=== PATIENT | female | born 1985 | race Caucasian/White ===

== ENCOUNTER 2022-06-27 12:45 | Emergency (ER) | payer BC ==
[2022-06-27 13:26] LABS: ANION GAP 11.6 mEq/L (7-13); CHLORIDE,CL 104 mmol/L (98-107); ESTIMATED GFR 91 mL/min (>=60); SODIUM,NA 142 mmol/L (136-145)
[2022-06-27] MEDS: Sodium Chloride 0.9% 10 ML Syringe FLUSH PRN ×2 (13:43→15:24)
[2022-06-27] MEDS ORDERED: Sodium Chloride 0.9% 1,000 ML IV ONE (13:46)
[2022-06-27] MEDS ORDERED: Iopamidol 755 Mg/ML 100 ML Bottle IVPUSH ONE (14:00)
[2022-06-27] MEDS ORDERED: GI Cocktail Oral Solution 30 ML PO ONE (14:30)
[2022-06-27] MEDS ORDERED: Famotidine 20 MG/2 ML SDV IVPUSH ONE (14:59)
== END 2022-06-27 16:20 | disposition home or self-care (01) ==
LOC: DL.ED 12:45 → MERGE 12:45 → DL.ED 16:20
DX: K20.90 Esophagitis, unspecified without bleeding (principal); K22.4 Dyskinesia of esophagus; Z88.8 Allergy status to other drugs, medicaments and biological substances; Z91.09 Other allergy status, other than to drugs and biological substances
CPT/HCPCS: 36415; 71045; 71275; 80053; 82150; 83690; 84484; 84703; 85025; 85379; 85610; 85730; 93005; 96361; 96374; 99285; A9270; J3490; J7030; Q9967; 93010

== ENCOUNTER 2024-11-14 22:03 | Emergency (ER) | payer BC | END 2024-11-14 22:52 | disposition left against medical advice (07) | LOC: DL.ED 22:03 | DX: Z53.21 Procedure and treatment not carried out due to patient leaving prior to being seen by health care provider (principal) ==